=== PATIENT | male | born 1960 | race Native Hawaiian/Other Pacific Islander ===

== ENCOUNTER 2019-09-16 05:10 | Outpatient (CLI) | payer BC | END 2019-09-16 05:29 | disposition short-term general hospital (02) | LOC: AMB 05:10 | DX: S01.01XA Laceration without foreign body of scalp, initial encounter (principal); M54.2 Cervicalgia; M54.89 Other dorsalgia; V89.0XXA Person injured in unspecified motor-vehicle accident, nontraffic, initial encounter; Y92.89 Other specified places as the place of occurrence of the external cause | CPT/HCPCS: A0425; A0427 ==

== ENCOUNTER 2019-09-16 05:37 | Emergency (ER) | payer BC ==
[~2019-09-16] VITALS: Ht 177.8 cm; Wt 142.9 kg
[2019-09-16 05:37] VITALS: TEMP 97.7
[2019-09-16 06:08] LABS: PLATELET COUNT 249 K/uL (142-355)
[2019-09-16 06:16] LABS: POTASSIUM 3.8 mmol/L (3.6-5.2)
[2019-09-16 06:56] LABS: PARTIAL THROMBOPLASTIN TIME 22.5 SECONDS (24.5-33.6)
[2019-09-16 09:05] VITALS: BP 152/94
== END 2019-09-16 09:05 | disposition short-term general hospital (02) ==
LOC: ED 05:37
PROVIDERS: Family Medicine
DX: S09.90XA Unspecified injury of head, initial encounter (principal); S01.01XA Laceration without foreign body of scalp, initial encounter; S20.219A Contusion of unspecified front wall of thorax, initial encounter; S80.02XA Contusion of left knee, initial encounter; V58.0XXA Driver of pick-up truck or van injured in noncollision transport accident in nontraffic accident, initial encounter
CPT/HCPCS: 80053; 85027; 85610; 85730; 96374; 99285; J1885; Q9963

== ENCOUNTER 2019-09-16 09:22 | Outpatient (CLI) | payer BC | END 2019-09-16 10:51 | disposition short-term general hospital (02) | LOC: AMB 09:22 | DX: S01.01XA Laceration without foreign body of scalp, initial encounter (principal); S82.099A Other fracture of unspecified patella, initial encounter for closed fracture; S12.100A Unspecified displaced fracture of second cervical vertebra, initial encounter for closed fracture; S12.500A Unspecified displaced fracture of sixth cervical vertebra, initial encounter for closed fracture; S12.600A Unspecified displaced fracture of seventh cervical vertebra, initial encounter for closed fracture; R00.0 Tachycardia, unspecified; R94.31 Abnormal electrocardiogram [ECG] [EKG]; V48.0XXA Car driver injured in noncollision transport accident in nontraffic accident, initial encounter | CPT/HCPCS: A0425; A0427 ==